=== PATIENT | male | born 1985 | race Caucasian/White ===

== ENCOUNTER 2016-10-15 17:39 | Emergency (ER) | payer MEDICAID ==
[2016-10-15 19:34] LABS: UA SPECIFIC GRAVITY 1.025 (1.005-1.035); microscopic required? YES; urine erythrocyte 3+ (NEGATIVE)
[2016-10-16 00:07] VITALS: BP 108/77
== END 2016-10-16 00:07 | disposition home or self-care (01) ==
LOC: ED 17:39
PROVIDERS: Emergency Medicine
DX: N20.0 Calculus of kidney (principal)
CPT/HCPCS: J1885; Q0092

== ENCOUNTER 2016-10-16 23:35 | Inpatient (IN) | payer MEDICAID ==
[~2016-10-16] VITALS: Ht 170.2 cm; Wt 88.9 kg
--- NOTE | 2016-10-17 00:14 | NUR ---
DR MALDONADO AT BEDSIDE FOR MSE
--- NOTE | 2016-10-17 00:20 | NUR ---
PT TO CT WITHOUT INCIDENT
--- NOTE | 2016-10-17 00:34 | NUR ---
20G SL TO R AC X1 ATTEMPT. LABS DRAWN AND SENT.
[2016-10-17 00:39] LABS: BASOPHIL % 0.4 % (0-2); PLATELET COUNT 217 x10^3mcL (130-400); RED CELL DISTRIBUTION WIDTH 12.8 % (11.5-14.5)
[2016-10-17 00:41] LABS: microscopic required? YES; urine erythrocyte 3+ (NEGATIVE)
[2016-10-17 00:45] LABS: CALCIUM 8.9 mg/dL (8.5-10.1); CARBON DIOXIDE 29.9 mmol/L (21-32); CHLORIDE SERUM 106 mmol/L (98-107); GFR1 > 60 mL/min; GLUCOSE SERUM 82 mg/dL (74-106); POTASSIUM SERUM 3.8 mmol/L (3.5-5.1); SODIUM SERUM 143 mmol/L (136-145)
[2016-10-17 00:50] LABS: ALBUMIN 3.9 g/dL (3.4-5.0); ALKALINE PHOSPHATASE 94 U/L (46-116); ALT/SGPT 33 U/L (16-63); AMYLASE 90 U/L (25-115); AST/SGOT 19 U/L (15-37); BILIRUBIN TOTAL 0.3 mg/dL (0.20-1.00); LIPASE 181 IU/L (73-393); TOTAL PROTEIN, SERUM 7.3 g/dL (6.4-8.2)
--- NOTE | 2016-10-17 00:51 | NUR ---
PT REFUSED ORDERED MORPHINE AND ZOFRAN; STATES PAIN IS "STABLE" AT THIS TIME AND RATES 4/10. DR BRISCOE INFORMED AND TORADOL 30MG IVP ORDERED. PT AGREEABLE TO PLAN.
--- NOTE | 2016-10-17 02:06 | NUR ---
REPORT CALLED TO FEMI RN TO ASSUME CARE OF PT
[2016-10-17 02:43] LABS: MAGNESIUM 1.7 mg/dL (1.8-2.4); PHOSPHOROUS 4.7 mg/dL (2.5-4.9)
[2016-10-17 02:44] LABS: CHOLESTEROL/HDL RATIO 1.9
[2016-10-17 02:45] VITALS: BP 109/68
[2016-10-17 02:45] LABS: FREE T4 1.19 ng/dL (0.76-1.46); T4(THYROXINE) 8.3 ug/dL (4.7-13.3)
[2016-10-17 02:46] LABS: T3 TOTAL 1.1 ng/mL
--- NOTE | 2016-10-17 03:15 | NUR ---
PT ARRIVED TO UNIT VIA [facility] ACCOMPANIED BY NURSE. ALERT AND AWAKE. AOX4. VERBAL WITH CLEAR SPEECH. LUNGS CLEAR BILATERALLY. 99% RA. NO S/S OF RESPIRATORY DISTRESS NOTED. ON TELE 22, SB. NOTED PT'S HR LOW 44. DENIES ANY CHEST PAIN, DIZZINESS, OR HEADACHE. BREATHING EQUAL AND UNLABORED. SKIN WARM AND DRY. IV TO RIGHT AC PATENT AND INTACT. NO S/S OF INFECTION NOTED. NO EDEMA NOTED. PULSES PALPABLE. DENIES ANY BURNING WITH URINATION. DENIES ANY PAIN AT THIS TIME. SPOUSE AT BEDSIDE. CALL LIGHT WITHIN REACH. WILL CONTINUE TO MONITOR. DR. OWEN NOTIFIED AND AWARE OF PT'S LOW HR 44, BP 109/68, 99% RA.
--- NOTE | 2016-10-17 06:07 | NUR ---
PT CURRENTLY RESTING WITH EYES CLOSED. BREATHING EQUAL AND UNLABORED. NO S/S OF RESPIRATORY DISTRESS NOTED. IV PATENT AND INFUSING WELL. NO S/S OF DISTRESS NOTED. CALL LIGHT WITHIN REACH. WILL CONTINUE TO MONITOR.
[2016-10-17 06:35] VITALS: BP 110/69
[2016-10-17 07:03] LABS: AMPHETAMINE QUAL UR NONE DETECTED (NEG <=1000)
--- NOTE | 2016-10-17 07:05 | NUR ---
PT SEEN REST ON BED WITH HIS AT BED SIDE WHO SPEAKS INDONESIAN. PT NO COMPLAIN OF PAIN AND OTHER DISCOMFORT. PT BREATHING ON RA, EVEN, UNLABORED. IV SITE PATENT, INTACT. IVF INFUSING WELL.
--- NOTE | 2016-10-17 08:10 | NUR ---
PT'S REPORTED PT URINATED. THERE IS BLOOD CLOT NOTED IN THE URINE. WILL MADE AWARE.
[2016-10-17 10:06] VITALS: BP 101/60
[2016-10-17 12:54] VITALS: BP 100/48
[2016-10-17 17:47] VITALS: BP 114/74
--- NOTE | 2016-10-17 18:11 | NUR ---
PT'S AT BED SIDE. THROUGH DAY PT DIDN'T COMPLAIN OF PAIN. ONLY ONE TIME PT REPORTED HEMATURIA. PT BREATHING ON RA, EVEN, UNLABORED. IV SITE PATENT, INTACT. IVF INFUSING WELL.
--- NOTE | 2016-10-17 19:10 | NUR ---
RECEIVED PT AWAKE ALERT AND VERBALLY RESPONSIVE IN [facility] WITH AT BEDSIDE.DENIES CHESTPAIN AT THIS TIME.BP 126/69 MMHG,HR 52.DENIES PAIN OR BURNING SENSATION ON URINATION.STRAINING ALL URINE.DENIES ANY PAIN AT THIS TIME.WILL CONTINUE TO MONITOR.
[2016-10-17 19:42] VITALS: BP 126/69
--- NOTE | 2016-10-18 04:47 | NUR ---
PT SLEPT WELL.DENIES ANY PAIN ALL NIGHT.ALL URINE STRAINED.NO STONES PASSED.ALL NEEDS MET.WILL CONTINUE TO MONITOR.
--- NOTE | 2016-10-18 05:09 | NUR ---
URINE OUTPUT TO YELLOW COLORED URINE.CONTINUE TO STRAIN ALL URINE
[2016-10-18 05:58] VITALS: BP 120/60
[2016-10-18 07:10] LABS: CALCIUM 8.3 mg/dL (8.5-10.1); CARBON DIOXIDE 26.3 mmol/L (21-32); CHLORIDE SERUM 108 mmol/L (98-107); CREATININE SERUM 0.9 mg/dL (0.7-1.3); GFR1 > 60 mL/min; GLUCOSE SERUM 99 mg/dL (74-106); MAGNESIUM 1.8 mg/dL (1.8-2.4); PHOSPHOROUS 3.8 mg/dL (2.5-4.9); POTASSIUM SERUM 3.8 mmol/L (3.5-5.1); SODIUM SERUM 142 mmol/L (136-145)
--- NOTE | 2016-10-18 07:55 | NUR ---
RECEIVED PT IN BED. ASSESSED AND DOCUMENTED. DENIES PAIN THIS TIME. SAFTEY PRECAUTIONS ON. WILL MONITOR.
--- NOTE | 2016-10-18 08:20 | NUR ---
AND RESIDENTS DID ROUNDS. EXPLAINED THE PLAN OF CARE AND ANSWERED ALL PT'S QUESTIONS.
[2016-10-18 10:26] VITALS: BP 114/66
--- NOTE | 2016-10-18 12:00 | NUR ---
PT RESTING IN BED COMFORTABLY. DENIES PAIN THIS TIME. STABLE. STRAINING URINE, NO STONE DETECTED.
[2016-10-18] MEDS ORDERED: FLO4 PO (12:01)
[2016-10-18 15:27] VITALS: BP 114/66
--- NOTE | 2016-10-18 15:55 | NUR ---
DISCHARGE INSTRUCTIONS GIVEN. PB SIGNED AND SENT WITH PT. IV REMOVED AND DRESSING APPLIED. PRESCRIPTION SENT TO PHARMACY BY DOCTOR. PT DENIES PAIN. MOBILE APPLICATION DEVELOPER TOOK PT TO LOBBY VIA WHEELCHAIR ACCOMPANIED BY PT'S . PT DC HOME.
== END 2016-10-18 15:55 | disposition home or self-care (01) | DRG 465 ==
LOC: ED 23:35 → MU 10-17 01:46 → DU 10-17 01:46 → MU 10-17 11:10
PROVIDERS: Emergency Medicine; ADMIT Family Medicine
DX: N20.0 Calculus of kidney (principal); E83.42 Hypomagnesemia; R31.9 Hematuria, unspecified; N41.9 Inflammatory disease of prostate, unspecified; E66.9 Obesity, unspecified; Z68.30 Body mass index [BMI] 30.0-30.9, adult
CPT/HCPCS: 83880; 84439; J1885; J2270; J2405; J7030; Q0092